=== PATIENT | male | born 1990 ===

== ENCOUNTER 2024-11-27 01:52 | Emergency (ER) | payer SELFPAY ==
[~2024-11-27] VITALS: Ht 172.7 cm; Wt 79.4 kg
[2024-11-27] MEDS ORDERED: CACL 1GM SYG IVP ONE (01:53)
--- NOTE | 2024-11-27 02:05 | NUR ---
PT FOUND WITH UNDERWEAR, BLUE JEANS. SHIRT, TWO LIGHTERS AND ONE PHONE. $1.43 2 SOCKS AND 2 WHITE SHOES
--- NOTE | 2024-11-27 02:16 | ERN ---
General Chief Complaint: CPR/Full Arrest Stated Complaint: CARDIAC ARREST Time Seen by MD: 02:03 Source: EMS History of Present Illness Initial Comments Patient is a unknown male approximately 41 years old who collapsed in front of an EMS crew. They noted pinpoint pupils and gave him an amp of Narcan. Patient went into asystole and was given two amps of bicarb as well as 2 mg of epinephrine and was intubated on route. On arrival to the emergency room the patient was receiving mechanical CPR and bag mask ventilation. Patient's pupils were noted to be fixed dilated and there were no corneal reflexes. We initiated CPR immediately and administered a mg of epinephrine. First pulse check showed no pulses and the monitor showed asystole. Another round of epinephrine was given and chest compressions re-initiated. After 2 minutes pulse check showed no pulse and again asystole on the monitor. We gave the patient a g of calcium an amp of bicarb and an amp of D50. After the 3rd round of chest compressions pulse check revealed asystole with no cardiac activity on the monitor. We stopped resuscitation efforts. Allergies: Uncoded Allergies: UNKNOWN (Allergy, Unknown, 11/27/24) Past Medical History Past Medical History: Other Medical History Other: UNKNOWN Past Surgical History: Unknown MDM Given the patient's lack of signs of life on arrival to the emergency room and no return of spontaneous circulation or final reflexes after 3 minutes of ACLS resuscitation we declared the patient . at 0200 11/27/2024. DX & DISP Disposition: Departure Condition: Stable Referrals: NONE (PCP) JAGDISH BOTELLO MD Nov 27, 2024 02:16
--- NOTE | 2024-11-27 02:45 | NUR ---
DONOR REFERAL CALLEDTOREY IS A CANIDATE FOR TISSUE AND EYE REFERAL # [id number] Addendum: 11/27/24 at 0259 by [email or web address] Spoke with srinivasan Rich.
--- NOTE | 2024-11-27 03:00 | NUR ---
CONTACTED STEPHANIE BUTTERFIELD TO GATHER MORE INFORMATION ON PATIENT, STEPHANIE BUTTERFIELD STATED THEY DO NOT HAVE ANY MORE INFORMATION AND IS STILL A TRAM [place] AT THIS TIME./HILARY
--- NOTE | 2024-11-27 03:08 | NUR ---
STEPHANIE BUTTERFIELD CALLED BACK TO INFORM RED HAT OPEN STACK ADMINISTRATOR IS ON THE WAY TO GATHER INFORMATION ON PATIENT./HILARY
--- NOTE | 2024-11-27 03:30 | NUR ---
[facility] [employer] OFFICER SAMREEN COLMENARES CALLED TO INFORM THAT UTILITY BILL COLLECTION CLERK CHIEF DAPHNE WILL BE COMING TO SEE THE BODY TO GET FINGER PRINTS AND PHOTOGRAPHS OF THE PT BODY TO ASSIST WITH IDENTIFICATION./HILARY
--- NOTE | 2024-11-27 03:45 | NUR ---
CHEYENNE FROM [facility] CALLED BACK FOR SCREENING FOR POTENTIAL DONATION. UPON COMPLETION OF SCREENING PATIENT IS NOT A CANIDATE FOR DONATION DUE TO BEING HIGH RISK./HILARY
--- NOTE | 2024-11-27 06:16 | NUR ---
CUT OFF SAW OPERATOR PIPE BLANKS CHIEF DAPHNE AT BEDSIDE./HILARY
--- NOTE | 2024-11-27 06:17 | NUR ---
USER EXPERIENCE ARCHITECT CHIEF SERNA INSTRUCTED THAT [facility] KEEPS THE BODY IN THE [place] SO THEY MAY CONDUCT AN AUTOPSY, CHIEF SERNA STATED HE WILL BE CONTACTING THEIR SMALL BATTERY PLATE ASSEMBLER TO OBTAIN ORDERS./HILARY
== END 2024-11-27 06:41 ==
LOC: EDBD 01:52 → EDH 01:52
DX: I46.9 Cardiac arrest, cause unspecified (principal)
CPT/HCPCS: 99285; 92950; J7070; J0169; J3490 ×2